=== PATIENT | female | born 2000 | race Caucasian/White ===

== ENCOUNTER 2024-12-23 02:34 | Emergency (ER) | payer MEDICAID, OTHER ==
[~2024-12-23] VITALS: Ht 152.4 cm; Wt 48.5 kg
[2024-12-23 03:40] VITALS: BP 109/65; TEMP 98.1; O2SAT 97
[2024-12-23 04:04] LABS: APPEARANCE,URINE CLOUDY (CLEAR); BILIRUBIN,URINE NEGATIVE (NEGATIVE); BLOOD, URINE NEGATIVE Ery/uL (NEGATIVE); COLOR,URINE YELLOW (YELLOW); KETONES,URINE NEGATIVE (NEGATIVE); LEUKOCYTE ESTERASE ,URINE NEGATIVE (NEGATIVE); NITRITE, URINE POSITIVE (NEGATIVE); PROTEIN,URINE NEGATIVE (NEGATIVE); UGLUCOSE NEGATIVE (NEGATIVE); UROBILINOGEN,URINE 0.2 EU/dL (0.2)
[2024-12-23 04:06] LABS: PREGNANCY TEST URINE QUAL NEGATIVE (NEGATIVE)
[2024-12-23 04:17] LABS: BACTERIA,URINE Many /HPF (None Seen); SQUAMOUS EPITHELIAL CELL,UR Many /HPF (None Seen)
[2024-12-23 04:18] LABS: ADD URINE CULTURE YES
[2024-12-23] MEDS ORDERED: NITR100C6 PO (04:27)
[2024-12-23] MEDS ORDERED: PHEN-705 PO (04:27)
[2024-12-24 05:08] LABS: RAPID PLASMA REAGIN QUAL. Non Reactive (Non Reactive)
[2024-12-24 12:07] LABS: CHLAMYDIA TRACHOMATIS NAA Negative (Negative); NEISSERIA GONORRHOEAE NAA Negative (Negative)
[2024-12-26 15:11] LABS: HIV-1 p24 ANTIGEN NON REACTIVE (NONREACTIVE); HIV-1/2 ANTIBODY NON REACTIVE (NONREACTIVE)
== END 2024-12-23 05:15 | disposition home or self-care (01) ==
LOC: ER 02:46
DX: N39.0 Urinary tract infection, site not specified (principal); Z11.3 Encounter for screening for infections with a predominantly sexual mode of transmission; Z90.49 Acquired absence of other specified parts of digestive tract; Z90.89 Acquired absence of other organs
CPT/HCPCS: 36415; 81001; 84703-TC; 86592; 86593; 87086-TC; 87186-TC; 87491; 87591; 87806

== ENCOUNTER 2025-01-06 05:48 | Emergency (ER) | payer OTHER ==
[~2025-01-06] VITALS: Ht 152.4 cm; Wt 48.5 kg
[~2025-01-06 05:48] MED LIST: NITR100C6 PO; PHEN-705 PO
[2025-01-06 06:00] VITALS: TEMP 98.3
[2025-01-06] MEDS ORDERED: ACETAMINOPHEN ES 500 MG TABLET ONE (06:35)
[2025-01-06] MEDS: ACETAMINOPHEN ES 500 MG TABLET PO ONE (06:38)
[2025-01-06 07:05] LABS: PREGNANCY TEST URINE QUAL NEGATIVE (NEGATIVE)
[2025-01-06 08:39] VITALS: BP 120/80; O2SAT 98
== END 2025-01-06 08:39 | disposition home or self-care (01) ==
LOC: ER 05:56
DX: R51.9 Headache, unspecified (principal); Z90.49 Acquired absence of other specified parts of digestive tract; Z90.89 Acquired absence of other organs; V43.52XA Car driver injured in collision with other type car in traffic accident, initial encounter; Y93.89 Activity, other specified; Y92.488 Other paved roadways as the place of occurrence of the external cause; Y99.8 Other external cause status
CPT/HCPCS: 70450-TC; 70486-TC; 84703-TC